=== PATIENT | male | born 1990 | race Caucasian/White ===

== ENCOUNTER 2022-04-12 08:02 | Emergency (ER) | payer BC, OTHER ==
[~2022-04-12] VITALS: Ht 177.8 cm; Wt 74.3 kg
[2022-04-12] MEDS ORDERED: RABIES IMMUNE GLOBULIN 1500 INTERNATIONAL UNIT/5ML VIAL (90375) IM ONE (08:45)
[2022-04-12] MEDS ORDERED: RABIES VACCINE HUMAN 2.5 INTERNATIONAL UNITS/ML VIAL (90675) IM ONE (08:45)
[2022-04-12 09:58] VITALS: BP 131/71
== END 2022-04-12 09:59 | disposition home or self-care (01) ==
LOC: M ED 08:02
DX: Z29.14 Encounter for prophylactic rabies immune globulin (principal); F41.9 Anxiety disorder, unspecified

== ENCOUNTER 2022-04-15 02:27 | Emergency (ER) | payer BC ==
[~2022-04-15] VITALS: Ht 177.8 cm; Wt 73.2 kg
[2022-04-15 02:33] VITALS: BP 120/59
== END 2022-04-15 03:37 | disposition left against medical advice (07) ==
LOC: M ED 02:27
DX: Z53.21 Procedure and treatment not carried out due to patient leaving prior to being seen by health care provider (principal)

== ENCOUNTER 2022-04-15 08:19 | Emergency (ER) | payer BC ==
[~2022-04-15] VITALS: Ht 177.8 cm; Wt 72.7 kg
[2022-04-15] MEDS ORDERED: RABIES VACCINE HUMAN 2.5 INTERNATIONAL UNITS/ML VIAL (90675) IM ONE (08:50)
[2022-04-15 09:15] VITALS: BP 128/62
== END 2022-04-15 09:16 | disposition home or self-care (01) ==
LOC: M ED 08:19
DX: Z29.14 Encounter for prophylactic rabies immune globulin (principal)

== ENCOUNTER 2022-04-19 08:19 | Emergency (ER) | payer BC ==
[~2022-04-19] VITALS: Ht 177.8 cm; Wt 72.5 kg
[2022-04-19 08:19] VITALS: BP 145/73
[2022-04-19] MEDS ORDERED: RABIES VACCINE HUMAN 2.5 INTERNATIONAL UNITS/ML VIAL (90675) IM ONE (09:30)
== END 2022-04-19 09:47 | disposition home or self-care (01) ==
LOC: M ED 08:19
DX: Z29.14 Encounter for prophylactic rabies immune globulin (principal)

== ENCOUNTER 2022-04-26 08:42 | Emergency (ER) | payer BC ==
[~2022-04-26] VITALS: Ht 177.8 cm; Wt 71.1 kg
[2022-04-26 08:42] VITALS: BP 135/80
[2022-04-26] MEDS ORDERED: RABIES VACCINE HUMAN 2.5 INTERNATIONAL UNITS/ML VIAL (90675) IM ONE (09:30)
== END 2022-04-26 09:49 | disposition home or self-care (01) ==
LOC: M ED 08:42
DX: Z29.14 Encounter for prophylactic rabies immune globulin (principal)

== ENCOUNTER 2025-06-19 03:02 | Emergency (ER) | payer BC ==
[~2025-06-19] VITALS: Ht 177.8 cm; Wt 77.4 kg
[2025-06-19 05:03] VITALS: BP 130/66; TEMP 98.2; O2SAT 100
[2025-06-19] MEDS: RABIES VACCINE HUMAN 2.5 INTERNATIONAL UNITS/ML VIAL (IMOVAX) IM ONE (07:14)
== END 2025-06-19 07:36 | disposition home or self-care (01) ==
LOC: M ED 03:02
DX: Z20.3 Contact with and (suspected) exposure to rabies (principal); Z29.14 Encounter for prophylactic rabies immune globulin; W55.89XA Other contact with other mammals, initial encounter; Z23 Encounter for immunization; Y99.9 Unspecified external cause status

== ENCOUNTER 2025-06-22 05:23 | Emergency (ER) | payer BC, OTHER ==
[~2025-06-22] VITALS: Ht 177.8 cm; Wt 76.4 kg
[2025-06-22] MEDS: RABIES VACCINE HUMAN 2.5 INTERNATIONAL UNITS/ML VIAL (IMOVAX) IM ONE (06:30)
[2025-06-22 06:36] VITALS: BP 128/60; TEMP 98; O2SAT 100
== END 2025-06-22 06:38 | disposition home or self-care (01) ==
LOC: M ED 05:23
DX: Z20.3 Contact with and (suspected) exposure to rabies (principal); Z29.14 Encounter for prophylactic rabies immune globulin; W55.81XA Bitten by other mammals, initial encounter; F12.10 Cannabis abuse, uncomplicated; F10.10 Alcohol abuse, uncomplicated